=== PATIENT | female | born 1955 | race Caucasian/White ===

== ENCOUNTER 2016-10-21 19:19 | Emergency (ER) | payer OTHER ==
[~2016-10-21] VITALS: Ht 157.5 cm; Wt 48.5 kg
--- NOTE | ~2016-10-21 | CT16 ---
[facility] RADIOLOGY TEXT RESULTS PATIENT: TERRANCE ALANIZ LOCATION: [facility] : 55 UNIT #: [id number] AGE: [address]: Roxy Dotson MD SEX: F ORDER DR: [id number] [facility] [address] [place], [place] [address] [id number] E MR#: [id number] Acc #: [id number] NAME: TERRANCE ALANIZ : 1955 SEX: F STUDY DATE/TIME: 10/21/2016 21:29 UNIT: [facility] ROOM: STUDY DESCRIPTION: CT Angio Chest for PE Attending Physician: Roxy Dotson M.D. Ordering Physician: Roxy Dotson M.D. Primary Care Physician: Ana Laura Beltran M.D. MEDICAL IMAGING REPORT This report is preliminary unless electronic signature is present EXAM Chest CT with contrast with CT angiography. HISTORY Right-sided chest pain, worse when breathing for the past month accompanied by cough. TECHNIQUE Axial imaging was obtained through the chest with contrast. 80 mL of Isovue was used. CT angiography was performed with thick sliding MIPs in the sagittal and coronal projections. This CT exam was performed with one or more of the following radiation dose reduction techniques: automatic exposure control, adjustment of mA and/or kV according to patient size, and iterative reconstruction. FINDINGS Chest images at mediastinal window show no pulmonary artery filling defects to suggest emboli. There are no enlarged mediastinal or hilar lymph nodes. The aorta is generally ectatic. There is a replaced right subclavian as a normal variant. No pleural or pericardial fluid is seen. The CT angiographic images also show no evidence of emboli. Images at lung window show severe emphysema. There is mild volume loss at the left lung base. There is mild scarring at the right lung base. No suspicious masses or infiltrates are seen. IMPRESSION Severe emphysema with no evidence of pneumonia. No pulmonary emboli are seen. No evidence of adenopathy. [facility] RADIOLOGY TEXT RESULTS PATIENT: TERRANCE ALANIZ LOCATION: [facility] : 55 UNIT #: [id number] AGE: [address]: Roxy Dotson MD SEX: F ORDER DR: Dictated by... Jose Gracia M.D. THIS IS AN ELECTRONICALLY VERIFIED REPORT Jose Gracia M.D. at 10/23/2016 7:09 AM NORA/candi TD: 10/22/2016 09:47 JOB #: [id number] MEDICAL IMAGING REPORT Page 1 of 1 COPY
--- NOTE | ~2016-10-21 | EKG ---
PATIENT: TERRANCE ALANIZ UNIT #: [id number] Ventricular Rate: 84 BPM Atrial Rate: 84 BPM P-R Interval: 140 ms QRS Duration: 70 ms Q-T Interval: 376 ms QTC Calculation(Bezet): 444 ms P [place]: 72 degrees Calculated R [place]: 29 degrees Calculated T [place]: 41 degrees Diagnosis Line: Normal sinus rhythm Diagnosis Line: Normal ECG Diagnosis Line: No previous ECGs available Diagnosis Line: Confirmed by TIANA LEVINE MD ([id number]) on 10/23/2016 Diagnosis Line: 10:14:07 PM INTERPRETING MD: JULIANNA SUAZO
[~2016-10-21 19:19] MED LIST: ACETAMINOPHEN; ALBUTEROL 0.5ML; ALBUTEROL17 GM; ASPIRIN81 M1; FOLIC ACID1 MG PO; LISINOPRIL; METHOTREXATE2.5 MG PO; STERAPRED5 MG/DOSE1 PO; ULTRAM; [UNRECOGNIZED DRUG - OTHER]
[2016-10-21] MEDS ORDERED: TYLENOL #3 PO (20:08)
[2016-10-21] MEDS ORDERED: ZOFRAN ODT4 M1 PO (20:09)
[2016-10-21 20:11] LABS: POC - CKMB 1.3 ng/mL (0.0-7.9); POC - TROPONIN <0.05 ng/mL (<=0.05)
[2016-10-21 20:35] LABS: BASOPHIL# 0.1 X10e3 (0-0.3); BASOPHIL% 0.7 % (0-2.5); EOSINOPHIL# 0.1 X10e3 (0-0.7); EOSINOPHIL% 1.6 % (0.0-7.0); HEMATOCRIT 36.4 % (35.0-45.0); HEMOGLOBIN 12.3 gm/dL (12.0-16.0); LYMPHOCYTE# 1.1 X10e3 (1.0-3.5); LYMPHOCYTE% 11.6 % (17.0-45.0); MEAN CELL VOLUME 82.1 FL (83-96); MEAN CORPUSCULAR HEMOGLOBIN 27.6 PG (28-34); MEAN CORPUSCULAR HGB CONC 33.6 g/dL (30-36); MEAN PLATELET VOLUME 7.1 FL (6.5-11.5); MONOCYTE# 0.8 X10e3 (0-1.0); MONOCYTE% 8.2 % (3.0-12.0); NEUTROPHIL# 7.3 X10e3 (1.5-7.1); NEUTROPHIL% 77.9 % (40-75); PLATELET COUNT 421 X10e3 (140-420); RED BLOOD COUNT 4.44 X10e (3.90-5.30); RED CELL DISTRIBUTION WIDTH 23.6 % (11.0-15.5); WHITE BLOOD COUNT 9.4 X10e3 (4.0-10.5)
[2016-10-21 20:38] LABS: DIFF IND YES
[2016-10-21 20:50] LABS: CALCIUM SERUM 9.7 mg/dL (8.4-10.2); CREATININE SERUM 0.4 mg/dL (0.6-1.4); GLOM FILT RATE Estimated 112.4 mL/min (>60)
[2016-10-21 20:54] LABS: PLATELET ESTIMATE NORMAL (NORMAL); POIKILOCYTOSIS MOD
== END 2016-10-21 23:42 | disposition home or self-care (01) ==
LOC: CED 19:19
PROVIDERS: Student in an Organized Health Care Education/Training Program
DX: J44.9 Chronic obstructive pulmonary disease, unspecified (principal)
CPT/HCPCS: 36415; 71275; 80048; 82553; 84484; 85025; 93005; 99285; Q9967